=== PATIENT | female | born 1940 | race Caucasian/White ===

== ENCOUNTER 2020-06-30 10:03 | Outpatient (CLI) | payer MEDICARE, OTHER ==
[2020-06-30 10:17] LABS: BASOPHILS # (AUTO) 0.1 10^3/uL (0.0-0.1); BASOPHILS % (AUTO) 0.8 %; EOSINOPHILS # (AUTO) 0.3 10^3/uL (0.0-0.7); HGB - HEMOGLOBIN 15.4 g/dL (12.0-16.0); LYMPHOCYTES # (AUTO) 1.7 10^3/uL (1.5-3.5); LYMPHOCYTES % (AUTO) 27.9 %; MEAN CORPUSCULAR HEMOGLOBIN 31.4 pg (27.0-31.0); MEAN CORPUSCULAR VOLUME 95.3 fL (81.0-99.0); MEAN PLATELET VOLUME 9.8 fL (7.9-10.8); MONOCYTES # (AUTO) 0.7 10^3/uL (0.0-1.0); MONOCYTES % (AUTO) 11.8 %; NEUTROPHILS # (AUTO) 3.4 10^3/uL (1.5-6.6); NEUTROPHILS % (AUTO) 55.2 %; PLT - PLATELET COUNT 182 10^3/uL (130-450); RED CELL DISTRIBUTION WIDTH 13.7 % (12.0-15.0); WHITE BLOOD COUNT 6.2 x10^3/uL (4.8-10.8)
[2020-06-30 10:39] LABS: % IRON SATURATION 35 % (20-50); ALBUMIN 4.4 g/dL (3.2-5.5); ALBUMIN/GLOBULIN RATIO 1.4 (1.0-2.2); ALKALINE PHOSPHATASE 76 IU/L (42-121); ALT ALANINE AMINOTRANSFERASE 19 IU/L (10-60); AST ASPARTATE AMINOTRANSFERASE 25 IU/L (10-42); BILIRUBIN,TOTAL 1.2 mg/dL (0.2-1.0); BUN - BLOOD UREA NITROGEN 21 mg/dL (6-20); CALCIUM 9.4 mg/dL (8.5-10.3); CARBON DIOXIDE - CO2 27 mmol/L (21-32); CHLORIDE 102 mmol/L (101-111); CHOL/HDL RATIO 4.5 (<4.4); CHOLESTEROL 250 mg/dL; CREATININE 0.9 mg/dL (0.4-1.0); GLUCOSE 96 mg/dL (70-100); HDL CHOLESTEROL 56 mg/dL; IRON 133 ug/dL (28-170); LDL CHOLESTEROL,CALCULATED 173 mg/dL; LDL/HDL RATIO 3.1 (<4.4); SODIUM 140 mmol/L (135-145); TOTAL IRON BINDING CAPACITY 384 ug/dL (250-450); TOTAL PROTEIN 7.6 g/dL (6.7-8.2); TRANSFERRIN 274 mg/dL (192-382); VLDL CHOLESTEROL 21 mg/dL
[2020-06-30 10:56] LABS: FERRITIN 21.6 ng/mL (11.0-306.8)
[2020-06-30 11:39] LABS: FREE T4 (FREE THYROXINE) 0.61 ng/dL (0.58-1.64)
== END 2020-06-30 10:04 | disposition home or self-care (01) ==
LOC: LAB 10:03
PROVIDERS: ATTEND Family Medicine
DX: D64.9 Anemia, unspecified (principal); I10 Essential (primary) hypertension; M54.16 Radiculopathy, lumbar region; G60.9 Hereditary and idiopathic neuropathy, unspecified; R00.0 Tachycardia, unspecified; E78.5 Hyperlipidemia, unspecified
CPT/HCPCS: 36415; 80053; 80061; 81599; 82607; 82728; 82746; 83540; 83721; 84439; 84443; 84466; 85025; 86592

== ENCOUNTER 2020-12-31 10:30 | Outpatient (CLI) | payer MEDICARE, OTHER ==
--- NOTE | 2020-12-31 18:20 | XRAY Report ---
PROCEDURE: Chest 2 View X-Ray INDICATIONS: EXERTIONAL SOB TECHNIQUE: 2 view(s) of the chest. COMPARISON: None. FINDINGS: Surgical changes and devices: None. Lungs and pleura: No pleural effusions or pneumothorax. Large midline air and fluid filled structur e compatible with a large hiatal hernia. There is mild adjacent compressive atelectasis. Lungs are ot herwise clear. Mediastinum: Mediastinal contours are normal. Heart size is normal. Bones and chest wall: No suspicious bony abnormalities. Soft tissues appear unremarkable. IMPRESSION: Large hiatal hernia. No acute cardiopulmonary abnormalities. Consider further evaluation with direct visualization or possible cross-sectional imaging. Reviewed by: Martinez Cleaning MD on 12/31/2020 5:18 PM [facility] Approved by: Martinez Cleaning MD on 12/31/2020 5:18 PM [facility] Station ID: [id number]
== END 2020-12-31 10:31 | disposition home or self-care (01) ==
LOC: DI 10:30
PROVIDERS: ATTEND Family Medicine
DX: K44.9 Diaphragmatic hernia without obstruction or gangrene (principal)

== ENCOUNTER 2021-12-06 18:36 | Outpatient (CLI) | payer MEDICARE, OTHER ==
--- NOTE | 2021-12-07 08:31 | Ultrasound Report ---
PROCEDURE: Pelvic w/Transvaginal INDICATIONS: POSTMENOPAUSAL VAGINAL BLEEDING TECHNIQUE: Real-time scanning was performed of the pelvic organs, with image documentation. Additional endovagi nal scanning was necessary due to incomplete visualization of the adnexal and endometrial structures by transabdominal scanning. COMPARISON: None. FINDINGS: The uterine body measures 2.2 x 2.0 x 4.0 cm. Heterogenous uterine echotexture without a discrete mas s. The endometrium measures 4 mm and no linear thickness and is ill-defined/heterogenous. Neither ovary is identified. No free pelvic fluid. IMPRESSION: Ill-defined and heterogenous endometrium measuring up to 4 mm. Consider endometrial sampling to exclu de endometrial carcinoma. Neither ovary identified. Reviewed by: Kang Puentes MD on 12/07/2021 8:30 AM PDT Approved by: Kang Puetnes MD on 12/07/2021 8:30 AM PDT Station ID: [id number]
== END 2021-12-06 18:37 | disposition home or self-care (01) ==
LOC: DI 18:36
PROVIDERS: ATTEND Physician Assistant
DX: N95.0 Postmenopausal bleeding (principal)

== ENCOUNTER 2021-12-10 08:00 | Outpatient (CLI) | payer MEDICARE, OTHER | END 2021-12-10 08:01 | disposition home or self-care (01) | LOC: LAB.R 08:00 | PROVIDERS: ATTEND Physician Assistant | DX: R30.0 Dysuria (principal) | CPT/HCPCS: 87086; 87181 ==

== ENCOUNTER 2022-02-23 07:52 | Outpatient (CLI) | payer MEDICARE, OTHER ==
[2022-02-23 09:22] LABS: BASOPHILS # (AUTO) 0.1 10^3/uL (0.0-0.1); BASOPHILS % (AUTO) 0.8 %; EOSINOPHILS # (AUTO) 0.3 10^3/uL (0.0-0.7); EOSINOPHILS % (AUTO) 4.1 %; HCT - HEMATOCRIT 47.7 % (37.0-47.0); HGB - HEMOGLOBIN 15.5 g/dL (12.0-16.0); LYMPHOCYTES # (AUTO) 1.8 10^3/uL (1.5-3.5); LYMPHOCYTES % (AUTO) 28.2 %; MEAN CORPUSCULAR HEMOGLOBIN 30.9 pg (27.0-31.0); MEAN CORPUSCULAR HGB CONC 32.5 g/dL (32.0-36.0); MEAN CORPUSCULAR VOLUME 95.2 fL (81.0-99.0); MEAN PLATELET VOLUME 11.1 fL (7.9-10.8); MONOCYTES # (AUTO) 0.7 10^3/uL (0.0-1.0); MONOCYTES % (AUTO) 10.6 %; NEUTROPHILS # (AUTO) 3.7 10^3/uL (1.5-6.6); PLT - PLATELET COUNT 180 10^3/uL (130-450); RED BLOOD COUNT 5.01 10^6/uL (4.20-5.40); RED CELL DISTRIBUTION WIDTH 14.3 % (12.0-15.0); WHITE BLOOD COUNT 6.5 x10^3/uL (4.8-10.8)
[2022-02-23 09:41] LABS: THYROID STIMULATING HORMONE 13.83 uIU/mL (0.34-5.60)
[2022-02-23 10:11] LABS: ALBUMIN 4.3 g/dL (3.2-5.5); ALBUMIN/GLOBULIN RATIO 1.3 (1.0-2.2); ALKALINE PHOSPHATASE 71 IU/L (42-121); ALT ALANINE AMINOTRANSFERASE 14 IU/L (10-60); AST ASPARTATE AMINOTRANSFERASE 23 IU/L (10-42); BUN - BLOOD UREA NITROGEN 26 mg/dL (6-20); CALCIUM 9.6 mg/dL (8.5-10.3); CARBON DIOXIDE - CO2 30 mmol/L (21-32); CHLORIDE 103 mmol/L (101-111); CHOL/HDL RATIO 4.7 (<4.4); CHOLESTEROL 259 mg/dL; CREATININE 0.9 mg/dL (0.4-1.0); GFR - MDRD 60 (>89); GLUCOSE 91 mg/dL (70-100); HDL CHOLESTEROL 55 mg/dL; LDL CHOLESTEROL,CALCULATED 181 mg/dL; LDL/HDL RATIO 3.3 (<4.4); SODIUM 140 mmol/L (135-145); TOTAL PROTEIN 7.7 g/dL (6.7-8.2); TRIGLYCERIDES 117 mg/dL; VLDL CHOLESTEROL 23 mg/dL
[2022-02-23 10:19] LABS: FREE T4 (FREE THYROXINE) 0.46 ng/dL (0.58-1.64)
== END 2022-02-23 07:53 | disposition home or self-care (01) ==
LOC: LAB 07:52
PROVIDERS: ATTEND Family Medicine
DX: I10 Essential (primary) hypertension (principal); J44.9 Chronic obstructive pulmonary disease, unspecified; R06.09 Other forms of dyspnea; E78.5 Hyperlipidemia, unspecified; D64.9 Anemia, unspecified; F41.9 Anxiety disorder, unspecified; F32.A Depression, unspecified
CPT/HCPCS: 36415; 80053; 80061; 83721; 84439; 84443; 85025

== ENCOUNTER 2022-08-22 13:10 | Outpatient (CLI) | payer MEDICARE, OTHER ==
[2022-08-22 13:50] LABS: THYROID STIMULATING HORMONE 4.66 uIU/mL (0.34-5.60)
[2022-08-22 13:52] LABS: FREE T3 3.25 pg/mL (2.5-3.9); FREE T4 (FREE THYROXINE) 0.74 ng/dL (0.58-1.64)
== END 2022-08-22 13:11 | disposition home or self-care (01) ==
LOC: LAB 13:10
PROVIDERS: ATTEND Family Medicine
DX: E03.9 Hypothyroidism, unspecified (principal)
CPT/HCPCS: 36415; 84439; 84443; 84481

== ENCOUNTER 2023-03-08 09:07 | Outpatient (CLI) | payer MEDICARE, OTHER ==
[2023-03-08 09:25] LABS: BASOPHILS % (AUTO) 0.7 %; EOSINOPHILS # (AUTO) 0.2 10^3/uL (0.0-0.7); EOSINOPHILS % (AUTO) 4.5 %; HCT - HEMATOCRIT 45.2 % (37.0-47.0); HGB - HEMOGLOBIN 14.7 g/dL (12.0-16.0); LYMPHOCYTES # (AUTO) 1.6 10^3/uL (1.5-3.5); LYMPHOCYTES % (AUTO) 30.2 %; MEAN CORPUSCULAR HEMOGLOBIN 30.9 pg (27.0-31.0); MEAN CORPUSCULAR HGB CONC 32.5 g/dL (32.0-36.0); MEAN PLATELET VOLUME 10.2 fL (7.9-10.8); MONOCYTES # (AUTO) 0.6 10^3/uL (0.0-1.0); MONOCYTES % (AUTO) 10.6 %; NEUTROPHILS # (AUTO) 2.9 10^3/uL (1.5-6.6); NEUTROPHILS % (AUTO) 53.8 %; PLT - PLATELET COUNT 173 10^3/uL (130-450); RED BLOOD COUNT 4.76 10^6/uL (4.20-5.40); RED CELL DISTRIBUTION WIDTH 13.7 % (12.0-15.0); WHITE BLOOD COUNT 5.4 x10^3/uL (4.8-10.8)
[2023-03-08 09:41] LABS: ALBUMIN 3.8 g/dL (3.2-5.5); ALBUMIN/GLOBULIN RATIO 1.2 (1.0-2.2); BILIRUBIN,TOTAL 0.8 mg/dL (0.2-1.0); CALCIUM 9.1 mg/dL (8.5-10.3); CREATININE 0.9 mg/dL (0.4-1.0); POTASSIUM 4.3 mmol/L (3.5-5.0)
[2023-03-08 09:55] LABS: THYROID STIMULATING HORMONE 4.17 uIU/mL (0.34-5.60)
[2023-03-08 09:57] LABS: FREE T3 2.69 pg/mL (2.5-3.9)
[2023-03-08 09:58] LABS: FREE T4 (FREE THYROXINE) 0.68 ng/dL (0.58-1.64)
--- NOTE | 2023-03-08 11:53 | XRAY Report ---
PROCEDURE: Chest 2 View X-Ray INDICATIONS: EXERTIONAL DYSPNEA, REACTIVE AIRWAY DISEASE TECHNIQUE: 2 views of the chest were acquired. COMPARISON: Chest radiographs 12/30/2019 FINDINGS: Surgical changes and devices: None. Lungs and pleura: No pleural effusions or pneumothorax. Lungs are clear. Large hiatal hernia Mediastinum: Mediastinal contours appear normal. Heart size is normal. Bones and chest wall: No suspicious bony lesions. Overlying soft tissues appear unremarkable. IMPRESSION: Large hiatal hernia. No acute cardiopulmonary abnormality. Reviewed by: Cali Jackson MD on 03/08/2023 11:52 AM PDT Approved by: Cali Jackson MD on 03/08/2023 11:52 AM PDT Station ID: [id number]
== END 2023-03-08 09:08 | disposition home or self-care (01) ==
LOC: DI 09:07
PROVIDERS: ATTEND Family Medicine
DX: R06.09 Other forms of dyspnea (principal); J45.909 Unspecified asthma, uncomplicated; K44.9 Diaphragmatic hernia without obstruction or gangrene; E03.9 Hypothyroidism, unspecified; M54.16 Radiculopathy, lumbar region; R00.0 Tachycardia, unspecified; K21.9 Gastro-esophageal reflux disease without esophagitis
CPT/HCPCS: 36415; 80053; 82306; 84439; 84443; 84481; 85025

== ENCOUNTER 2023-10-31 20:58 | Outpatient (CLI) | payer MEDICARE, OTHER | END 2023-10-31 23:59 | disposition EMS.NT | LOC: EMS 20:58 | DX: R07.89 Other chest pain (principal); R10.33 Periumbilical pain; R11.2 Nausea with vomiting, unspecified ==

== ENCOUNTER 2024-02-23 10:21 | Outpatient (CLI) | payer MEDICARE, OTHER ==
[2024-02-23 10:32] LABS: BASOPHILS # (AUTO) 0.1 10^3/uL (0.0-0.1); BASOPHILS % (AUTO) 0.8 %; EOSINOPHILS # (AUTO) 0.3 10^3/uL (0.0-0.7); EOSINOPHILS % (AUTO) 4.8 %; HCT - HEMATOCRIT 44.9 % (37.0-47.0); HGB - HEMOGLOBIN 14.4 g/dL (12.0-16.0); LYMPHOCYTES # (AUTO) 1.8 10^3/uL (1.5-3.5); LYMPHOCYTES % (AUTO) 28.3 %; MEAN CORPUSCULAR HGB CONC 32.1 g/dL (32.0-36.0); MEAN CORPUSCULAR VOLUME 96.6 fL (81.0-99.0); MEAN PLATELET VOLUME 10.1 fL (7.9-10.8); MONOCYTES # (AUTO) 0.7 10^3/uL (0.0-1.0); MONOCYTES % (AUTO) 10.1 %; NEUTROPHILS # (AUTO) 3.6 10^3/uL (1.5-6.6); NEUTROPHILS % (AUTO) 55.8 %; PLT - PLATELET COUNT 188 10^3/uL (130-450); RED BLOOD COUNT 4.65 10^6/uL (4.20-5.40); RED CELL DISTRIBUTION WIDTH 13.9 % (12.0-15.0); WHITE BLOOD COUNT 6.4 x10^3/uL (4.8-10.8)
[2024-02-23 10:50] LABS: ALBUMIN 4.3 g/dL (3.2-5.5); ALBUMIN/GLOBULIN RATIO 1.4 (1.0-2.2); ALKALINE PHOSPHATASE 73 IU/L (42-121); ALT ALANINE AMINOTRANSFERASE 15 IU/L (10-60); AST ASPARTATE AMINOTRANSFERASE 26 IU/L (10-42); BILIRUBIN,TOTAL 0.8 mg/dL (0.2-1.0); BUN - BLOOD UREA NITROGEN 30 mg/dL (6-20); CALCIUM 9.7 mg/dL (8.5-10.3); CARBON DIOXIDE - CO2 29 mmol/L (21-32); CHLORIDE 105 mmol/L (101-111); CHOL/HDL RATIO 4.3 (<4.4); CHOLESTEROL 219 mg/dL; CREATININE 1.1 mg/dL (0.6-1.3); GFR - MDRD 47 (>89); GLUCOSE 92 mg/dL (74-104); HDL CHOLESTEROL 51 mg/dL; LDL CHOLESTEROL,CALCULATED 140 mg/dL; LDL/HDL RATIO 2.7 (<4.4); POTASSIUM 4.9 mmol/L (3.5-4.5); SODIUM 139 mmol/L (135-145); TOTAL PROTEIN 7.3 g/dL (6.4-8.9); TRIGLYCERIDES 140 mg/dL (48-352); VLDL CHOLESTEROL 28 mg/dL
[2024-02-23 11:02] LABS: THYROID STIMULATING HORMONE 3.88 uIU/mL (0.34-5.60)
== END 2024-02-23 10:22 | disposition home or self-care (01) ==
LOC: LAB 10:21
PROVIDERS: ATTEND Family Medicine
DX: E03.9 Hypothyroidism, unspecified (principal); R06.09 Other forms of dyspnea; J44.9 Chronic obstructive pulmonary disease, unspecified; E78.5 Hyperlipidemia, unspecified; M54.16 Radiculopathy, lumbar region; G60.9 Hereditary and idiopathic neuropathy, unspecified
CPT/HCPCS: 36415; 80053; 80061; 83721; 84443; 85025

== ENCOUNTER 2024-03-15 17:15 | Emergency (ER) | payer MEDICARE, OTHER ==
[2024-03-15 17:45] VITALS: BP 156/85; O2SAT 96
--- NOTE | 2024-03-15 17:56 | ED Physician Documentation ---
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 Patient says that she was picking something up from [employer] and felt a sharp popping sensation and heard a loud pop and now has pain to the radial aspect of her right wrist. There is also a slight bulge and swelling to the right wrist. Pain with flexion extension no bruising no erythema to the touch. PD PAST MEDICAL HISTORY - Past Medical History Past Medical History: Yes Cardiovascular: Arrhythmia - Past Surgical History Past Surgical History: Yes Ortho: Knee replacement, Carpal Tunnel surgery - Allergies Allergies/Adverse Reactions: Allergies Allergy/AdvReac Type Severity Reaction Status Date / Time No Known Drug Allergies Allergy Verified 03/15/24 17:26 - Social History Does the pt smoke?: No Smoking Status: Never smoker Does the pt drink ETOH?: No Does the pt have substance abuse?: No - Immunizations Immunizations are current?: Yes PD ED PE NORMAL - Vitals Vital signs reviewed: Yes - General General: Alert and oriented X 3, No acute distress, Well developed/nourished, Other - Derm Derm: Normal color, Warm and dry, No rash - Free text exam Free text exam: Right wrist: Swelling to the right radial aspect just below the thumb at the wrist. Tenderness with flexion extension of the wrist especially against resistance able to move all fingers including thumb any movement of thumb does trigger pain. No erythema no ecchymosis no laceration or abrasions. Results - Vitals Vitals: Vital Signs - 24 hr 03/15/24 03/15/24 17:27 19:30 Temperature 36 C L 36.2 C L Heart Rate 60 60 Respiratory 16 16 Rate Blood Pressure 156/85 H 156/85 H O2 Saturation 96 96 Oxygen O2 Source Room air - Rads (name of study) Right wrist x-ray Relevant Findings:: Final report received, EMP independent interpretation of test, Other (No acute bony abnormalities or findings) PD Medical Decision Making - ED course ED course: 83-year-old female presents emergency department for right wrist pain mostly to the radial leg. She does not have any snuffbox tenderness. X-rays are complete for further evaluation and does not reveal any acute bony abnormalities or fractures. She is placed in a thumb spica for more support of the right wrist and thumb and told to follow-up with Ortho and given a contact information for hand surgeon in [facility]. I do not believe this is gout given that the swelling is more localized there is no erythema and it is not tender to the touch. I also have a low suspicion for septic arthritis as patient says that she removed the wrist and felt a so I do believe this is some sort of tendon injury sprain versus strain versus possible tear. Patient given strict ER return precautions all questions answered and given a multitude of resources of providers to follow-up with the soon as possible on Monday. Tylenol ibuprofen for pain control. Departure - Departure Disposition: Home, Self Care Clinical Impression: Wrist sprain Qualifiers: Encounter type: initial encounter Laterality: right Qualified Code(s): S63.501A - Unspecified sprain of right wrist, initial encounter Instructions: ED Sprain Hand, ED Sprain Wrist Follow-Up: Gaston Dent MD [Provider Admit Priv/Credential] - Comments: Thank you for trusting us with your care. I am not totally sure what is causing this right wrist pain as well as the swelling it could be a wrist sprain Or some other type of tendon injury But we did complete x-rays here and we are not seeing any acute bony fractures or abnormalities at this point in time.. We have put you in a thumb spica to help immobilize that wrist and thumb. Please follow-up with Ortho outpatient as soon as possible their contact information is here I would also encourage you to reach out to Dr. Jeong with [facility] he is a hand surgeon and his phone number is [phone]. You can alternate between Tylenol and Aleve for pain and discomfort. Ice for 20 minutes at a time 1 hour off. Please do not take any NSAIDs until 6 hours from 7:00 PM as we did give you a Toradol shot here in the emergency department. Forms: PCP List Discharge Date/Time: 03/15/24 19:32
--- NOTE | 2024-03-15 18:35 | XRAY Report ---
PROCEDURE: Wrist 3+V RT INDICATIONS: rt wrist pain TECHNIQUE: 3 views of the wrist were acquired. COMPARISON: None. FINDINGS: Bones: No fractures or dislocations. No suspicious bony lesions. Prominent arthritic changes are present particularly at the first CMC joint. Radiocarpal narrowing is also Soft tissues: No suspicious soft tissue calcifications or masses. IMPRESSION: No visualized acute fracture or dislocation. However, occult injury cannot be excluded. Recommend suzi rt interval imaging follow-up in 7-10 days as clinically indicated for additional evaluation. Reviewed by: Grisel Hardy MD on 03/15/2024 6:33 PM PDT Approved by: Grisel Hardy MD on 03/15/2024 6:33 PM PDT Station ID: [id number]
[2024-03-15] MEDS: KETOROLAC 15 MG/ML VIAL IM STA (19:24)
== END 2024-03-15 19:32 | disposition home or self-care (01) ==
LOC: ED 17:15
DX: S63.501A Unspecified sprain of right wrist, initial encounter (principal); X50.0XXA Overexertion from strenuous movement or load, initial encounter; Y93.89 Activity, other specified; Y92.512 Supermarket, store or market as the place of occurrence of the external cause
CPT/HCPCS: 96372; 99283